=== PATIENT | female | born 1955 | race Caucasian/White ===

== ENCOUNTER 2021-04-18 08:38 | Emergency (ER) | payer MEDICARE ==
[2021-04-18 08:47] VITALS: RESP 18; TEMP 97.1
--- NOTE | 2021-04-18 09:32 | XR ---
Left wrist. HISTORY: Pain findings on. COMPARISON: None. TECHNIQUE: 4 views left wrist are obtained. There is no fracture or focal intraosseous abnormality. There is no radiopaque foreign body or abnorm al soft tissue calcification. There is moderate osteoarthritic change of the first carpometacarpal joint. IMPRESSION: 1. No evidence of acute trauma. 2. Moderate osteoarthritic changes of the first carpometacarpal joint.
[2021-04-18] MEDS ORDERED: ACET/COD 300 MG/30 MG STARTER PACK 6 TAB BTL PO STA (09:39)
--- NOTE | 2021-04-18 09:40 | ED ---
Upper Extremity HPI - General Chief Complaint: Extremity Injury, Upper Stated Complaint: lt wrist lac Time Seen by Provider: 04/18/21 08:54 Source: patient Mode of arrival: ambulatory Limitations: no limitations - History of Present Illness Initial Comments: 65-year-old female patient presents to the emergency department today for evaluation of left wrist pain. Patient had a fall on 04/10/2021. Urgent care was initially discharged with a splint in place. They called her 5 days later stating there was a fracture and she needed to follow up with orthopedics. Patient states she has an appointment on Tuesday but the pain has been worsening so she was concerned. States the pain worsens at night. States she is able to move the hand and wrist. Denies numbness or tingling. Denies previous injury to the wrist. She denies any other injuries or concerns. - Related Data Allergies Allergy/AdvReac Type Severity Reaction Status Date / Time No Known Allergies Allergy Verified 04/18/21 08:47 Review of Systems ROS Statement: Those systems with pertinent positive or pertinent negative responses have been documented in the HPI. ROS Other: All systems not noted in ROS Statement are negative. Past Medical History Past Medical History: Thyroid Disorder History of Any Multi-Drug Resistant Organisms: None Reported Past Surgical History: No Surgical Hx Reported Past Psychological History: No Psychological Hx Reported Smoking Status: Current every day smoker Past Alcohol Use History: Occasional Past Drug Use History: None Reported General Exam Limitations: no limitations General appearance: alert, in no apparent distress, other (This is a well- developed, well-nourished adult female in no acute distress.) Respiratory exam: Present: normal lung sounds bilaterally. Absent: respiratory distress, wheezes, rales, rhonchi, stridor Cardiovascular Exam: Present: regular rate, normal rhythm, normal heart sounds. Absent: systolic murmur, diastolic murmur, rubs, gallop, clicks Extremities exam: Present: full ROM, normal capillary refill, other (There is ecchymosis noted over the volar aspect of the left wrist. Skin to the hand is pink, warm, dry. Cap refill less than 3 seconds. Radial pulse 2+. No anatomical snuffbox tenderness.). Absent: normal inspection, tenderness, pedal edema, joint swelling, calf tenderness Neurological exam: Present: alert, oriented X3, CN II-XII intact Psychiatric exam: Present: normal affect, normal mood Skin exam: Present: warm, dry, intact, normal color. Absent: rash Course Vital Signs 04/18/21 04/18/21 08:42 10:29 Temperature 97.1 F L Pulse Rate 90 80 Respiratory 18 18 Rate Blood Pressure 146/77 142/72 O2 Sat by Pulse 100 100 Oximetry Medical Decision Making - Medical Decision Making 65-year-old female patient presents to the emergency department today for evaluation of increasing left wrist pain after a fall on 04/10/2021. Physical examination did reveal ecchymosis over the volar aspect of the wrist. No anatomical snuffbox tenderness. Good neurovascular status. Full range of motion is intact. Repeat x-ray was obtained and was negative for any acute abnormalities. I did reapply her volar splint. She is discharged and is instructed to follow-up with orthopedics on Tuesday as planned. She is given starter pack for pain medication. Return parameters were discussed in detail. She verbalizes understanding and agrees with this plan. My attending is Dr. Boswell. - Radiology Data Radiology results: report reviewed, image reviewed 4 views of the left wrist are obtained. Report was reviewed in its entirety. Impression by Dr. Jane shows no evidence of acute trauma. Moderate osteoarthritic changes of the first carpometacarpal joint. Disposition Clinical Impression: Left wrist pain Disposition: HOME SELF-CARE Condition: Good Instructions (If sedation given, give patient instructions): Wrist Injury (ED) Additional Instructions: Rest, ice, elevate the wrist. Take pain medication for severe pain. Follow with orthopedics on Tuesday as planned. Return for any new, worsening, or concerning symptoms. Is patient prescribed a controlled substance at d/c from ED?: No Referrals: Vangie Gold DO [Primary Care Provider] - 1-2 days Time of Disposition: 09:40
[2021-04-18 10:30] VITALS: BP 142/72; PULSE 80
== END 2021-04-18 10:29 | disposition home or self-care (01) ==
LOC: EC 08:38
DX: M25.532 Pain in left wrist (principal); E07.9 Disorder of thyroid, unspecified; F17.200 Nicotine dependence, unspecified, uncomplicated
CPT/HCPCS: 29125; 99283